=== PATIENT | female | born 1980 | race Caucasian/White ===

== ENCOUNTER → 2020-01-25 14:16 | Outpatient (CLI) | payer OTHER, SELFPAY ==
--- NOTE | ~2020-01-25 | US_ITS ---
EXAMINATION: US pelvic complete w TV DATE: 01/25/2020 14:45 INDICATION: Abnormal uterine bleeding. Comparison:No prior studies for comparison. TECHNIQUE: Multiple transabdominal and endovaginal sonographic images of the pelvis performed. FINDINGS: The uterus measures 10.5 x 7.2 x 7.8 cm. There is a large heterogeneous mass at the uterine fundus measuring 7.2 x 6.4 x 7.1 cm, compatible with fibroid. The endometrial complex measures 2 mm. The right ovary measures 2.5 x 2.5 x 2.7 cm and the left ovary measures 2.4 x 2.2 x 2.2 cm. There ar e small follicles in each ovary. There is no free fluid in the pelvis. There are no abnormal masses seen on either side. IMPRESSION: 1. Large uterine fibroid at the fundus measuring 7.2 x 7.1 x 6.4 cm. Reviewed, dictated and finalized at location A.
== END ==
PROVIDERS: Visit Provider Student in an Organized Health Care Education/Training Program
DX: N93.9 Abnormal uterine and vaginal bleeding, unspecified (principal); D25.9 Leiomyoma of uterus, unspecified
CPT/HCPCS: 76830; 76856

== ENCOUNTER 2021-02-20 08:31 | Outpatient (CLI) | payer OTHER, SELFPAY ==
--- NOTE | 2021-02-20 08:30 | ECG_ITS ---
Measurements Intervals [place] Rate: 69 P: 3 GA: 154 QRS: 42 QRSD: 92 T: 21 QT: 411 QTc: 442 Interpretive Statements SINUS RHYTHM DELAYED PRECORDIAL R/S TRANSITION BASELINE ARTIFACT- I, II, III, AVR, AVL, AVF BORDERLINE ECG Electronically Signed On 02-20-2021 9:06:13 CDT by Parvez Ibanez D.O.
[2021-02-20 09:25] LABS: Basophils Absolute Auto 0.1 K/mm3 (0.0-0.1); Basophils Percent Auto 0.9 % (0.2-1.2); Eosinophils Absolute Auto 0.1 K/mm3 (0-0.3); Eosinophils Percent Auto 1.2 % (0-4.4); Hematocrit 42.8 % (37.0-47.0); Hemoglobin 14.2 g/dL (12.0-15.0); Immature Granulocyte Absolute 0.02 K/mm3 (0.00-0.031); Immature Granulocyte Percent A 0.2 % (0-0.5); Lymphocytes Absolute Auto 3.86 K/mm3 (0.9-3.2); Lymphocytes Percent Auto 44.6 % (18.3-44.2); Mean Corpuscular HGB Conc 33.2 g/dl (32-36); Mean Corpuscular Hemoglobin 30.3 pg (26-34); Mean Corpuscular Volume 91.5 fl (80-100); Mean Platelet Volume 9.8 fl (7.4-10.4); Monocytes Absolute Auto 0.7 K/mm3 (0.1-0.6); Monocytes Percent Auto 7.7 % (2.6-8.5); Neutrophils Absolute Auto 3.9 K/mm3 (1.3-6.7); Neutrophils Percent Auto 45.4 % (45.5-73.1); Platelet Count Result 349 k/mm3 (150-375); Red Blood Count 4.68 M/mm3 (4.2-5.4); Red Cell Distribution Width 13.9 % (11.5-14.5); White Blood Count 8.7 K/mm3 (4.5-10.0)
== END 2021-02-20 08:32 | disposition home or self-care (01) ==
LOC: ANHSURGERY 08:36
PROVIDERS: PCP Nurse Practitioner Family; Visit Provider Student in an Organized Health Care Education/Training Program
DX: Z01.818 Encounter for other preprocedural examination (principal); E78.00 Pure hypercholesterolemia, unspecified; I10 Essential (primary) hypertension
CPT/HCPCS: 36415; 85025; 86850; 86900; 86901; 93005

== ENCOUNTER 2021-02-23 10:50 | Inpatient (IN) | payer OTHER, SELFPAY ==
[2021-02-19 10:13] VITALS: BMI 26.5
--- NOTE | 2021-02-22 17:11 | PM.IMHP ---
H&P: HPI History of Present Illness Date/Time: 02/22/21 17:11 Patient is a 40-year-old nulligravid woman with a long history of fibroid uterus, abnormal uterine bleeding, dysmenorrhea, and pelvic pain. Pelvic US from 12/2019 showed uterus measuring 10.5 x 7.2 x 7.8 cm with a fundal fibroid measuring 7.2 x 6.4 x 7.1 cm. Patient reports persistent irregular menses, menorrhagia and dysmenorrhea since then. She also reports worsening lower back pain and increased urinary frequency. She has tried numerous OCPs in the past, including monophasic and triphasic as well as continuous methods. She was offered alternative methods of hormonal regulation, however, all declined. Patient was also offered IUD trial as well as referral for UFE or myomectomy. Patient declined these options as well and desires definitive management with a hysterectomy. Patient is adamant that she does not desire future fertility. In general, patient reports feeling well today without complaints. Chief Complaint: Fibroid uterus Abnormal uterine bleeding Dysmenorrhea Pelvic pain Review of Systems Review of Systems: All systems reviewed & are unremarkable except as noted in HPI and below Constitutional: Constitutional: Reports as per HPI, Reports no additional constitutional complaints, Denies chills, Denies fever(s), Denies headache(s) and Denies night sweats Eyes: Eyes: Reports as per HPI and Reports no additional eye complaints ENT: Reports system reviewed and no additional complaints, except as documented, Reports as per HPI, Reports Normal hearing present and Denies headache(s) Cardiovascular: Cardiovascular: Reports as per HPI, Reports no additional cardiovascular complaints, Denies chest pain and Denies dyspnea Respiratory: Respiratory: Reports as per HPI, Reports no additional respiratory complaints, Denies cough and Denies dyspnea Gastrointestinal: Gastrointestinal: Reports as per HPI, Reports no additional gastrointestinal complaints, Denies abdominal pain, Denies change in bowel habits, Denies change in stool character, Denies nausea and Denies vomiting Genitourinary: Genitourinary: Reports no additional female genitourinary complaints, Reports as per HPI, Reports abnormal menses, Reports abnormal vaginal bleeding, Denies genital lesions, Reports menorrhagia, Denies hot flashes, Denies dyspareunia, Reports dysmenorrhea, Reports pelvic pain, Denies sexual dysfunction, Denies urinary incontinence, Denies vaginal discharge, Denies vaginal dryness and Denies vaginal odor Musculoskeletal: Musculoskeletal: Reports no additional musculoskeletal complaints and Reports as per HPI Integumentary/Breasts: Skin/Breast: Reports system reviewed and no additional complaints, except as docu, Reports as per HPI, Denies breast pain and Denies nipple discharge Neurologic: Reports system reviewed and no additional complaints, except as documented, Reports as per HPI, Reports Normal hearing present and Denies headache(s) Psychiatric: Psychiatric: Reports no additional psychiatric complaints, Reports as per HPI, Denies anxiety and Denies depression Endocrine: Endocrine: Reports no additional endocrine complaints and Reports as per HPI Hematologic/Lymphatic: Hematologic/Lymphatic: Reports no additional hematologic/lymphatic complaints and Reports as per HPI Allergic/Immunologic: Allergic/Immunologic: Reports no additional allergic/immunologic complaints and Reports as per HPI PMFSH Past Medical History Medical History Benign essential HTN Endometriosis High cholesterol Hypertension Migraines Surgical History Surgical History History of colposcopy 2017 [place] teeth removed Family History Family History Father Diabetes mellitus Hypertension Malignant neoplasm of prostate Family history of diabetes mellitus in
[2021-02-23] VITALS (15 sets, daily range): BP systolic 106–123; BP diastolic 63–80; PULSE 72–98; RESP 8–18; TEMP 36.2–37.1; O2SAT 95–100; BMI 27.1
--- NOTE | 2021-02-23 06:43 | WPDANESEPPF ---
Anes - Initial Pre Proc Eval Procedure: Operation Date: 02/23/21 07:30 Proposed Procedures p Total Abdominal Hysterectomy with Bilateral Salpingectomy - Jamsina Root MD Date/Time: 02/23/21 06:43 Surgeon: Jasmina Root MD Pre Op Diagnosis: leiomyoma of uterus Patient Data Age: 40 Gender: F Height: 1.78 m Weight: 86 kg Allergies Allergy/AdvReac Type Severity Reaction Status Date / Time adhesive tape AdvReac Mild Rash Verified 02/23/21 06:36 erythromycin base AdvReac Mild Nausea Verified 02/23/21 06:36 Home Medications Medication Instructions Recorded Confirmed Type cetirizine 10 mg capsule 10 mg PO DAILY 08/03/19 02/19/21 History lisinopril 10 mg tablet 10 mg PO DAILY #90 tablet 08/25/19 02/19/21 Rx fluoxetine 20 mg capsule 20 mg PO DAILY 01/18/21 02/23/21 History levonorgestrel-ethinyl estradiol 1 tablet PO DAILY #84 tablet 01/18/21 02/19/21 Rx 0.1 mg-20 mcg tablet Adults Multivitamin 1 tab-cap PO DAILY 02/19/21 02/23/21 History atorvastatin 20 mg PO DAILY 02/19/21 02/19/21 History calcium carb-vit D2-magnesium 1 cap PO DAILY 02/19/21 02/23/21 History fluticasone propionate [Allergy 2 spray NASAL BID PRN 02/19/21 02/19/21 History Relief (fluticasone)] topiramate 50 mg PO DAILY 02/19/21 02/19/21 History Patient hx anesthesia problems: none Family hx anesthesia problems: none PMFSH Past Medical History Medical History Benign essential HTN Endometriosis High cholesterol Hypertension Migraines Surgical History Surgical History History of colposcopy 2017 [place] teeth removed Family History Family History Father Diabetes mellitus Hypertension Malignant neoplasm of prostate Family history of diabetes mellitus in first degree relative Mother Hypertension Family history of malignant neoplasm of brain Grandparent Family history of malignant neoplasm of breast Family history of malignant neoplasm of breast in first degree relative Sibling Depression Family history of gynecological problem Social History Social History Smoking status: Never smoker Second hand tobacco smoke exposure: No Alcohol intake: current Drinks per week: 3 Alcohol use details: social drinker Substance use: never Substance use type: does not use Living arrangements: with family Dean - Bernice Final PreProcedure Day of Procedure 02/23/21 06:43 Patient weight: overweight Heart: regular rate and rhythm Lungs: clear to auscultation Airway: Mallampati scale class 1 Neurological: alert and oriented Last oral intake: >/= 8 hours ASA classification: II Emergent: no Anesthetic plan: proceed Anesthesia type and monitoring: general ETT and standard monitoring Informed Consent: The patient's anesthetic plan and its attendant risks and benefits were discussed with the patient/family/POA. Questions were solicited and answers provided to the satisfaction of the patient/family/POA.
[2021-02-23] MEDS: LACTATED RINGERS 1,000 ML 30 ML IV CONT ×2 (06:45→09:11)
[2021-02-23] MEDS: KETOROLAC 15 MG/ML VIAL (*BKC) IV PUSH ×2 (06:51→10:07)
[2021-02-23] MEDS: ACETAMINOPHEN 500 MG TABLET 1000 MG PO (06:51)
[2021-02-23] MEDS: SCOPOLAMINE 1.5 MG PATCH TRANSDERM (07:01)
--- NOTE | 2021-02-23 07:16 | WPDHPUPDATE1 ---
History and Physical Update Update Date/Time: 02/23/21 07:16 History and Physical has been reviewed, including an updated exam of the patient. There are NO changes in the patient's condition. Risks, benefits, and alternatives have been discussed and questions answered. Patient agrees to proceed with procedure.
[2021-02-23] MEDS: ceFAZolin 2 GM/D5W 50 ML 2 GM/50 ML BAG IVPB (07:25)
[2021-02-23] MEDS: fentaNYL CITRATE INJ (*CRX) 100 MCG/2 ML VIAL 25 MCG IV PUSH ×8 (09:19→09:45)
--- NOTE | 2021-02-23 09:29 | W.PM.PROC2 ---
Procedure Note - Detailed Date of Procedure 02/23/21 Pre-op Diagnosis Fibroid uterus Abnormal uterine bleeding Dysmenorrhea Post-op Diagnosis same Procedure Performed Total abdominal hysterectomy Bilateral salpingectomy Surgeon Jasmina Root MD [employer] Alejo Helleress Anesthesia general Findings Approx. 10-12w size uterus, normal appearing ovaries and fallopian tubes bilaterally Description of Procedure The patient was taken to the operating room where she self transferred to the operating room table. She was placed in the dorsal supine position. General anesthesia was administered and found to be adequate. The patient was prepped and draped in the usual sterile fashion. A Pfannenstiel skin incision was made with a scalpel and carried through to the underlying layer of fascia with the Bovie. The fascia was incised in the midline and the incision was extended laterally with the use of forceps and Lo scissors. The inferior aspect of the fascial incision was grasped with Rogelio clamps, elevated, and the underlying rectus muscles were dissected off with Lo scissors. Attention was turned to the superior aspect of the fascial incision, which in a similar manner was grasped with Rogelio clamps, elevated, and the underlying rectus muscles also dissected off with Lo scissors. The rectus muscles were gently retracted and the peritoneal cavity was entered bluntly. The peritoneal cavity was gently stretched. The uterus was palpated beneath and was approx. 10-12w size and globular. Two lap pads were placed laterally beneath the rectus muscle bellies and a self-retaining Teo retractor was placed. Two additional lap pads were placed in the abdomen to displace the bowel cephalad and laterally. A bladder blade was attached to the retractor. The uterus was grasped with two towel clamps and and elevated through the incision. On inspection, the uterus was globular, however, smooth with two small subcentimeter fibroids on the posterior surface. The ovaries and fallopian tubes appeared normal bilaterally. A pean clamp was placed near the left uterine cornua for traction and elevation. The left round ligament was identified, grasped with [place] clamp, and suture ligated. The round ligament was transected with Bovie. The anterior leaf of the broad ligament was carefully dissected towards the midline to begin creation of bladder flap. The left fallopian tube was identified and grasped with a Ricky clamp. The LigaSure device was used to transect the mesosalpinx beneath the tube to the level of the cornua. An incision in the posterior leaf of the broad ligament on the left side was created with the Bovie. The LigaSure device was then used to transect the utero-ovarian ligament on the left side. Dissection of the posterior leaf of the broad ligament was performed. The uterine artery was well skeletonized and cauterized with the LigaSure. Attention was then turned to the patient's right side. A pean clamp was placed near the right uterine cornua for traction and elevation. The right round ligament was identified, grasped with a Ricky clamp, and suture ligated. The round ligament was transected with the Bovie and the anterior leaf of the broad ligament was carefully dissected towards the midline. The opposing ends were joined in the midline and careful dissection was performed to displace the bladder inferiorly. Dissection was primarily performed with the use of bovie and a sponge stick. The bladder was depressed inferiorly well below the level of the anterior cervix. The right fallopian tube was identified and grasped with [place] clamp. The LigaSure device was used to transect the mesosalpinx beneath the tube to the level of the cornua. The LigaSure device was then used to transect the utero-ovarian ligament on the right side. Dissection of the posterior leaf of the broad ligament was performed and the uterine artery was skeletonized and well visualized. The LigaSure devic
[2021-02-23] MEDS: HYDROmorphone HCL INJ (*CRX) 1 MG/ML SYR 0.5 MG IV PUSH ×4 (09:49→10:22)
--- NOTE | 2021-02-23 09:57 | SUR.PHASEI ---
DR. STRICKLAND CALLED TO ENTER ADMISSION ORDERS.
--- NOTE | 2021-02-23 10:37 | SUR.PHASEI ---
DR. STRICKLAND NOTIFIED RE: PATIENT'S PERSISTENT PAIN; DR. STRICKLAND WILL ORDER SPORTS ANALYST PUMP FOR PATIENT ON THE FLOOR. PHARMACY CALLED TO PLACE ORDER RENA.
[2021-02-23] MEDS: DEXTROSE 5%/0.45% SOD CHL 1,000 ML 125 ML IV CONT ×2 (12:03→20:29)
[2021-02-23] MEDS: HYDROmorphon 0.2MG/ML PCA(*CRX 6 MG/30 ML PCA.VIAL IV CONT (12:03)
[2021-02-23] MEDS: IBUPROFEN IV 400 MG in SODIUM CHLORIDE 0.9% IV 100 ML 200 MG IVPB ×2 (16:19→22:13)
[2021-02-24 01:00] VITALS: BP 113/71; PULSE 75; RESP 16; TEMP 36.3; O2SAT 99
[2021-02-24] MEDS: SIMETHICONE 80 MG TAB.CHEW (01:22)
[2021-02-24 03:00] VITALS: RESP 18; O2SAT 98
[2021-02-24 04:45] VITALS: BP 108/65; PULSE 76; RESP 16; TEMP 36.7; O2SAT 99
[2021-02-24] MEDS: IBUPROFEN IV 400 MG in SODIUM CHLORIDE 0.9% IV 100 ML 200 MG IVPB (04:45)
--- NOTE | 2021-02-24 06:45 | PC.NURSE ---
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
[2021-02-24 07:00] VITALS: BP 107/57; PULSE 70; RESP 18; TEMP 37.2
[2021-02-24] MEDS: HYDROcodone/acetaminophen (*CRX) 10-325 MG TABLET 1 TAB PO ×2 (07:01→13:11)
[2021-02-24] MEDS: IBUPROFEN 600 MG TABLET PO ×3 (07:01→19:24)
[2021-02-24] MEDS: SIMETHICONE 80 MG TAB.CHEW PO (07:02)
--- NOTE | 2021-02-24 09:03 | WPDANESPN ---
Anes - Prog Note Post-Op Date/Time: 02/24/21 09:03 Cardiovascular status: normal Respiratory status: normal Airway patency: baseline Mental status: baseline Post-Op hydration status: normal Vital Signs: Last Vital Signs Temp 37.2 C 02/24/21 07:00 Pulse 70 02/24/21 07:00 Resp 18 02/24/21 07:00 BP 107/57 L 02/24/21 07:00 Pulse Ox 99 02/24/21 04:45 Pain Score (VAS): 3 I/O: Intake & Output 02/23/21 02/24/21 02/24/21 23:59 07:59 15:59 Intake Total 3227 906 Output Total 925 2000 Balance 2302 -1094 Post-procedural complaints: none Patient Feedback: Patient satisfied with anesthetic care.
--- NOTE | 2021-02-24 09:04 | PM.GYNPNOP ---
WOOD BARKER - A/P Assessment and plan (1) S/P hysterectomy: Code(s): Z90.710 - Acquired absence of both cervix and uterus Status: Acute Assessment and Plan: POD#1 doing well continue routine postoperative care encourage ambulation and use of IS Postoperative Procedures: Procedures Operation Date: 02/23/21 07:30 Actual Procedure Side Surgeon p Total Abdominal Hysterectomy with Bilateral Salpingectomy Not Applicable Jasmina Root MD Time Spent With Patient Time: Total time spent is greater than 50% in coordination of care (as documented) at patient's floor/unit and/or counseling patient: Time with patient: less than 15 minutes WOOD BARKER- PN:Subj Post-Op Subjective Date/time seen: 02/24/21 09:04 Patient seen at bedside this morning. Pain well controlled medication. States that she currently only experiences some discomfort with movement. Denies any headache, chest pain, shortness of breath, nausea, or vomiting. Tolerating regular diet. Enciso catheter removed this morning. Has not yet voided. Passing flatus. Limited ambulation. Denies any vaginal bleeding. Exam Const: General: cooperative, healthy appearing, comfortable and no acute distress GI: Inspection: non-distended GI Palp: Yes Soft to palpation and No Tenderness to palpation present (GI) Other: incision c/d/i Extrem: Right lower extremity: no edema Left lower extremity: no edema Other: no calf tenderness WOOD BARKER - PN: Obj Data Vital Signs Vital Signs: Vital Signs - 24 hr 02/23/21 09:11 02/23/21 09:24 02/23/21 09:25 Temperature 36.9 C Pulse Rate 86 74 77 Respiratory Rate 11 L 8 L 8 L Blood Pressure 113/63 119/73 122/66 Pulse Oximetry 96 100 100 02/23/21 09:40 02/23/21 09:55 02/23/21 10:10 Temperature Pulse Rate 74 77 72 Respiratory Rate 10 L 13 10 L Blood Pressure 121/73 120/67 123/72 Pulse Oximetry 100 100 100 02/23/21 10:25 02/23/21 10:45 02/23/21 12:03 Temperature 36.6 C Pulse Rate 80 82 Respiratory Rate 12 10 L 16 Blood Pressure 117/68 122/76 Pulse Oximetry 96 96 02/23/21 12:15 02/23/21 16:00 02/23/21 19:10 Temperature 36.9 C 37.1 C 36.9 C Pulse Rate 89 98 92 Respiratory Rate 16 18 18 Blood Pressure 110/66 106/63 120/73 Pulse Oximetry 95 95 97 02/23/21 21:00 02/23/21 23:00 02/24/21 01:00 Temperature 36.3 C L Pulse Rate 75 Respiratory Rate 18 16 16 Blood Pressure 113/71 Pulse Oximetry 98 98 99 02/24/21 03:00 02/24/21 04:45 02/24/21 07:00 Temperature 36.7 C 37.2 C Pulse Rate 76 70 Respiratory Rate 18 16 18 Blood Pressure 108/65 107/57 L Pulse Oximetry 98 99 Intake/Output Intake/Output: Intake & Output 02/21/21 02/22/21 02/23/21 02/24/21 23:59 23:59 23:59 23:59 Intake Total 5677 906 Output Total 1135 1999 Balance 2028 -8203 Meds/Results Medications: Active Medications Generic Name Dose Route Start Last Admin Trade Name Freq PRN Reason Stop Dose Admin Hydrocodone Bitart/Acetaminophen 1 tab 02/24/21 06:31 Hydrocodone/Acetaminophen (*Crx) 5-325 Mg Tablet PO Q3H PRN Pain Rated 4-6 Hydrocodone Bitart/Acetaminophen 1 tab 02/24/21 06:32 02/24/21 07:01 Hydrocodone/Acetaminophen (*Crx) 10-325 Mg Tablet PO 1 tab Q3H PRN Administration Pain Rated 7-10 Dextrose/Sodium Chloride 1,000 mls @ 125 mls/hr 02/23/21 10:51 02/23/21 20:29 Dextrose 5% Sodium Chloride 0.45% IV CONT 125 mls/hr .Q8H ASUNCION Administration Ibuprofen 600 mg 02/24/21 06:30 02/24/21 07:01 Ibuprofen 600 Mg Tablet PO 600 mg Q6H PRN Administration Pain Rated 1-3 Ondansetron HCl 4 mg 02/23/21 10:51 Ondansetron Inj 4 Mg/2 Ml Vial IV PUSH Q6H PRN Nausea Simethicone 80 mg 02/24/21 06:35 02/24/21 07:02 Simethicone 80 Mg Tab.Chew PO 80 mg Q2HR PRN Administration Gas Discomfort
[2021-02-24 17:00] VITALS: BP 117/72; PULSE 76; RESP 16; TEMP 36.7
[2021-02-24 19:20] VITALS: BP 108/59; PULSE 88; RESP 16; TEMP 37; O2SAT 96
[2021-02-25] MEDS: IBUPROFEN 600 MG TABLET PO ×2 (00:56→07:41)
[2021-02-25] MEDS: HYDROcodone/acetaminophen (*CRX) 10-325 MG TABLET 1 TAB PO (00:57)
[2021-02-25 07:30] VITALS: BP 109/69; PULSE 72; RESP 16; TEMP 36.7; O2SAT 100
[2021-02-25] MEDS: HYDROcodone/acetaminophen (*CRX) 5-325 MG TABLET 1 TAB PO ×2 (07:41→10:13)
--- NOTE | 2021-02-25 08:28 | PM.GYNPNOP ---
MEDICAID ANALYST - A/P Assessment and plan (1) S/P hysterectomy: Code(s): Z90.710 - Acquired absence of both cervix and uterus Status: Acute Assessment and Plan: POD#2 doing well continue routine postoperative care encourage ambulation and use of IS Imodium for diarrhea plan is for dc home this afternoon emergency precautions reviewed f/u in office in 2 weeks Postoperative Procedures: Procedures Operation Date: 02/23/21 07:30 Actual Procedure Side Surgeon p Total Abdominal Hysterectomy with Bilateral Salpingectomy Not Applicable Jasmina Root MD Time Spent With Patient Time: Total time spent is greater than 50% in coordination of care (as documented) at patient's floor/unit and/or counseling patient: Time with patient: less than 15 minutes MEDICAID ANALYST- PN:Subj Post-Op Subjective Date/time seen: 02/25/21 08:28 Patient doing well this morning. Pain well controlled medication. Mild headache, however, likely environmental. Patient denies chest pain, shortness of breath, nausea, or vomiting. Tolerating regular p.o. diet. Patient is ambulating well. Voiding without difficulty. Passing flatus. Patient does report an episode of diarrhea this morning. Denies any vaginal bleeding. Exam Const: General: cooperative, healthy appearing, comfortable and no acute distress GI: Inspection: non-distended GI Palp: Yes Soft to palpation and No Tenderness to palpation present (GI) Other: inc c/d/i Extrem: Right lower extremity: no edema Left lower extremity: no edema Other: no calf tenderness MEDICAID ANALYST - PN: Obj Data Vital Signs Vital Signs: Vital Signs - 24 hr 02/24/21 17:00 02/24/21 19:20 Temperature 36.7 C 37.0 C Pulse Rate 76 88 Respiratory Rate 16 16 Blood Pressure 117/72 108/59 L Pulse Oximetry 96 Intake/Output Intake/Output: Intake & Output 02/22/21 02/23/21 02/24/21 02/25/21 23:59 23:59 23:59 23:59 Intake Total 5659 906 Output Total 9703 4750 Balance [id number] Meds/Results Medications: Active Medications Generic Name Dose Route Start Last Admin Trade Name Freq PRN Reason Stop Dose Admin Hydrocodone Bitart/Acetaminophen 1 tab 02/24/21 06:31 02/25/21 07:41 Hydrocodone/Acetaminophen (*Crx) 5-325 Mg Tablet PO 1 tab Q3H PRN Administration Pain Rated 4-6 Hydrocodone Bitart/Acetaminophen 1 tab 02/24/21 06:32 02/25/21 00:57 Hydrocodone/Acetaminophen (*Crx) 10-325 Mg Tablet PO 1 tab Q3H PRN Administration Pain Rated 7-10 Ibuprofen 600 mg 02/24/21 06:30 02/25/21 07:41 Ibuprofen 600 Mg Tablet PO 600 mg Q6H PRN Administration Pain Rated 1-3 Ondansetron HCl 4 mg 02/23/21 10:51 Ondansetron Inj 4 Mg/2 Ml Vial IV PUSH Q6H PRN Nausea Simethicone 80 mg 02/24/21 06:35 02/24/21 07:02 Simethicone 80 Mg Tab.Chew PO 80 mg Q2HR PRN Administration Gas Discomfort
--- NOTE | 2021-02-25 08:32 | P.DS_ITS ---
DS: Admitting Diagnosis Admitting Diagnosis Fibroid uterus DS: Summary Hospital Course Hospital Course: Uncomplicated Time Spent with Patient Time attestation: Total time spent providing and/or coordinating discharge services: DS: Data Data Completed and Pending Pending studies at discharge: Pending at discharge 02/23/21 08:31 Surgical [PTH] Routine Discharge Plan Discharge Attending physician on discharge: Jasmina Root Discharging Clinician: Jasmina Root Anticipated Discharge Date/Time: 02/25/21 13:00 Patient Disposition: Home, Self-Care Activity: as tolerated and pelvic rest Diet: regular Discharge Instructions: Remove the Scopolamine patch that was placed behind your ear in 72 hours or less. Wash your hands after touching. Call office ([phone]) to schedule the following appointments: 1. Postoperative/wound check in 2 weeks. 2. Postoperative visit in 4-6 weeks. You may take Ibuprofen 600mg every 6 hours as needed for pain. I have sent a prescription for a stronger pain medication, Purmela, to your pharmacy. You may take this as prescribed for breakthrough pain (pain that is not controlled with Ibuprofen). No driving for at least two weeks. You also may not drive while taking narcotics. Pain medication may make you constipated. It may be helpful to take an [id number] stool softener, such as Colace and/or Senokot, along with the pain medication to help lessen constipation. Call office or go to ED for pain not controlled with medication, headache, chest pain, shortness of breath, fever, chills, persistent nausea or vomiting, severe abdominal pain, heavy vaginal bleeding or leakage of fluid, foul vaginal discharge or odor, any redness near incision, severe pain, or pus or drainage from incision site. Stand Alone Forms: General Discharge Instructions Follow-up/Referrals: Jasmina Root MD [Physician] - Discharge Medications: New hydrocodone-acetaminophen 5-325 mg Tablet 1 - 2 tablet PO Q4-6H PRN (Reason: Pain Rated 4-6) Qty: 30 RF: 0 Continued fluoxetine [Prozac] 20 mg capsule 20 mg PO DAILY RF: 0 Zyrtec 10 mg capsule 10 mg PO DAILY RF: 0 Adults Multivitamin 1 tab-cap PO DAILY RF: 0 atorvastatin 20 mg tablet 20 mg PO DAILY RF: 0 calcium carb-vit D2-magnesium Capsule 1 cap PO DAILY RF: 0 topiramate 50 mg tablet 50 mg PO DAILY RF: 0 fluticasone propionate [Allergy Relief (fluticasone)] 50 mcg/actuation spray,suspension 2 spray NASAL BID PRN (Reason: Congestion) RF: 0 lisinopril 10 mg tablet 10 mg PO DAILY Qty: 90 RF: 3 Discontinued levonorgestrel-ethinyl estrad [Lutera (28)] 0.1-20 mg-mcg tablet 1 tablet PO DAILY Qty: 84 RF: 0 Date of admission: 02/23/21 10:50 Primary Care Provider: Angeles,Akua Admitting Provider: Jasmina Root Attending physician on admission: Jasmina Root Condition: Stable
== END 2021-02-25 12:57 | disposition home or self-care (01) | DRG 743 ==
LOC: ANHOB2 10:53
PROVIDERS: Admitting Provider Student in an Organized Health Care Education/Training Program; PCP Nurse Practitioner Family; Visit Provider Student in an Organized Health Care Education/Training Program
PROC: 0UT94ZZ Resection of Uterus, Percutaneous Endoscopic Approach (ICD-10-PCS; principal; 2021-02-23 07:30)
DX: D25.9 Leiomyoma of uterus, unspecified (principal); N93.9 Abnormal uterine and vaginal bleeding, unspecified; N94.6 Dysmenorrhea, unspecified; I10 Essential (primary) hypertension; E78.00 Pure hypercholesterolemia, unspecified
CPT/HCPCS: 36415; 85025; 86850; 86900; 86901; 88307; 93005; A9270; J0131; J0690; J1100; J1170; J1741; J1885; J2250; J2405; J2704; J2710; J3010; J7120

== ENCOUNTER → 2022-05-15 10:31 | Outpatient (CLI) | payer OTHER, SELFPAY ==
--- NOTE | ~2022-05-15 | MM_ITS ---
EXAMINATION: MM screening fred BI w mary HISTORY: Screening TECHNIQUE: Craniocaudal and mediolateral oblique 3-D tomosynthesis images were obtained and synthetic 2-D images were generated. CAD analysis was submitted and interpreted. COMPARISON: No prior mammogram is available for comparison at this institution. BREAST PARENCHYMAL COMPOSITION: The breasts are heterogeneously dense, which may obscure small masses FINDINGS: There are low-density masses in the upper outer quadrant of the right breast. There is a fo amador right breast asymmetry inferiorly on MLO view. No mammographic evidence for malignancy in the lef t breast. IMPRESSION: 1. Right breast contains low-density masses in the upper outer quadrant and asymmetry inferiorly on M LO view. 2. Additional mammographic views and possible breast ultrasound are recommended. BI-RADS Category 0: Incomplete: Needs additional imaging evaluation. Reviewed, dictated and finalized at location A. IMPRESSION: 1. Right breast contains low-density masses in the upper outer quadrant and asy mmetry inferiorly on MLO view. 2. Additional mammographic views and possible breast ultrasound are recommended . BI-RADS Category 0: Incomplete: Needs additional imaging evaluation.
== END ==
PROVIDERS: PCP Student in an Organized Health Care Education/Training Program; Visit Provider Nurse Practitioner Family
DX: Z12.31 Encounter for screening mammogram for malignant neoplasm of breast (principal); R92.8 Other abnormal and inconclusive findings on diagnostic imaging of breast
CPT/HCPCS: 77063; 77067

== ENCOUNTER → 2022-06-03 08:43 | Outpatient (CLI) | payer OTHER, SELFPAY ==
--- NOTE | ~2022-06-03 | MMUS_ITS ---
EXAMINATION: MM diagnostic fred RT w mary, US breast RT complete HISTORY: Low-density mammographic masses in upper outer quadrant and inferior asymmetry of right cher st on screening MLO view of 05/15/2022 TECHNIQUE: Additional 3-D tomosynthesis images of the right breast were performed and synthetic 2-D i mages were generated. CAD analysis was submitted and interpreted. High resolution complete right cher st ultrasound including all 4 quadrants was performed. COMPARISON: 05/15/2022 bilateral screening mammogram FINDINGS: MAMMOGRAPHIC FINDINGS: Approximately 5.8 mm at 11 mm circumscribed low-density opacities with halo sign are noted posteriorl y in the upper outer right breast, most likely benign cysts. Additional smaller circumscribed low-den sity opacities are noted. No suspicious mass or architectural distortion of the right breast is detected. ULTRASOUND: No suspicious mass or shadowing of the right breast is detected. 6:00 1 cm from nipple: 3.2 mm sonolucency without internal vascularity or posterior shadowing, consis tent with small cyst 8:00 4 cm from nipple: 2.7 mm sonolucency with through transmission, no internal vascularity, consist ent with small cyst 10:00 7 cm from nipple: Parallel circumscribed sonolucency measuring 4.6 x 10.5 mm, with through arellano smission and no internal vascularity, consistent with cyst 10:00 7 cm from nipple: Parallel circumscribed 3.3 x 4.8 x 7.6 mm sonolucency with through transmissi on and no internal vascularity, consistent with cyst IMPRESSION: 1. Benign findings 2. Routine annual mammographic screening is recommended BI-RADS Category 2: Benign finding(s). Reviewed, dictated and finalized at location A. ESSIONAL ENGINEER IMPRESSION: 1. Benign findings 2. Routine annual mammographic screening is recommended BI-RADS Category 2: Benign finding(s).
== END ==
PROVIDERS: Visit Provider Student in an Organized Health Care Education/Training Program
DX: R92.8 Other abnormal and inconclusive findings on diagnostic imaging of breast (principal)
CPT/HCPCS: 76641; 77061; 77065; G0279

== ENCOUNTER → 2022-06-12 11:45 | Outpatient (CLI) | payer OTHER, SELFPAY ==
--- NOTE | ~2022-06-12 | XR_ITS ---
XR lumbar spine 2-3V DATE: 06/12/2022 12:06 INDICATION: Fall 6 months ago. Low back pain, tailbone pain TECHNIQUE: AP, lateral, coned lateral lumbosacral views COMPARISON: None FINDINGS: No fracture or bone destruction or spondylolisthesis. The lumbar pedicles are intact. The s acroiliac joints are intact. Moderate loss of interspace height at L5-S1. Lumbar interspaces appear relatively preserved. IMPRESSION: Moderate loss of interspace height at L5-S1 Reviewed, dictated and finalized at location A. NIGHT
--- NOTE | ~2022-06-12 | XR_ITS ---
XR sacrum coccyx min 2V DATE: 06/12/2022 12:06 INDICATION: Fall 6 months ago. Low back pain and tailbone pain TECHNIQUE: AP, angled AP and lateral views of sacrum and coccyx COMPARISON: None FINDINGS: Degenerative disc disease at L5-S1. Normal alignment at the pubic symphysis and sacroiliac joints. No sacral fracture or bone destruction . No coccygeal fracture is evident. IMPRESSION: No sacral or coccygeal fracture is detected Degenerative disc disease at L5-S1 Reviewed, dictated and finalized at location A. E PRODUCT DEMONSTRATOR
== END ==
PROVIDERS: PCP Physician Assistant Medical; Visit Provider Physician Assistant Medical
DX: M54.50 Low back pain, unspecified (principal); M51.37 Other intervertebral disc degeneration, lumbosacral region; R29.890 Loss of height
CPT/HCPCS: 72100; 72220

== ENCOUNTER 2023-02-25 13:26 | Outpatient (CLI) | payer OTHER, SELFPAY ==
[2023-02-25 14:22] LABS: Influenza A QL RT-PCR Negative (Negative); Influenza B QL RT-PCR Negative (Negative); RSV RNA, RT-PCR Negative (Negative); SARS-CoV-2 RNA PCR Negative (Negative)
== END 2023-02-25 13:27 | disposition home or self-care (01) ==
PROVIDERS: PCP Family Medicine; Visit Provider Family Medicine
DX: U07.1 COVID-19 (principal)
CPT/HCPCS: 87637

== ENCOUNTER 2023-06-16 14:24 | Outpatient (CLI) | payer OTHER, SELFPAY ==
--- NOTE | ~2023-06-16 | MM_ITS ---
EXAMINATION: MM screening fred BI w mary HISTORY: Screening mammogram TECHNIQUE: Craniocaudal and mediolateral oblique 3-D tomosynthesis images were obtained and synthetic 2-D images were generated. CAD analysis was submitted and interpreted. COMPARISON: 06/03/2022 diagnostic right mammogram and complete right breast ultrasound 05/15/2022 bilateral screening mammogram BREAST PARENCHYMAL COMPOSITION: The breasts are heterogeneously dense, which may obscure small masses . FINDINGS: Several approximately 8 mm-11.5 mm opacities are noted in the posterior upper outer right b reast, with circumscribed margins, likely benign cysts. Diagnostic right mammogram and right breast u ltrasound examination are recommended. Otherwise no suspicious mass, architectural distortion, malignant calcification, skin thickening or r etraction of either breast or significant new or developing density is noted otherwise. IMPRESSION: 1. Posterior upper outer quadrant right breast masses 2. Diagnostic right mammogram and right breast ultrasound examination are recommended. BI-RADS Category 0: Incomplete: Needs additional imaging evaluation. Reviewed, dictated and finalized at location A. S REPRESENTATIVE GAS SERVICE IMPRESSION: 1. Posterior upper outer quadrant right breast masses 2. Diagnostic right mammogram and right breast ultrasound examination are recom mended. BI-RADS Category 0: Incomplete: Needs additional imaging evaluation.
== END 2023-06-16 14:25 | disposition home or self-care (01) ==
LOC: CHSIMG 14:28
PROVIDERS: PCP Family Medicine; Visit Provider Registered Nurse
DX: Z12.31 Encounter for screening mammogram for malignant neoplasm of breast (principal); R92.8 Other abnormal and inconclusive findings on diagnostic imaging of breast
CPT/HCPCS: 77063; 77067

== ENCOUNTER 2023-06-26 10:01 | Outpatient (CLI) | payer OTHER, SELFPAY ==
--- NOTE | ~2023-06-26 | US_ITS ---
EXAMINATION: US breast RT complete HISTORY: Posterior upper outer quadrant right breast masses reported on 06/16/2023 screening mammogra m TECHNIQUE: Additional 3-D tomosynthesis images of right breast were performed and synthetic 2-D image s were generated. CAD analysis was submitted and interpreted. High resolution complete right breast u ltrasound examination including all 4 quadrants and subareolar area was performed. COMPARISON: 06/16/2023 bilateral screening mammogram FINDINGS: MAMMOGRAPHIC FINDINGS:. There are multiple circumscribed opacities in the posterior upper outer right breast measuring up to approximately 12 mm, some with halo sign, suggesting multiple benign cysts. No suspicious mass or architectural distortion, malignant calcification, skin thickening or retractio n is detected. ULTRASOUND: 3:00 4 cm from nipple: Approximately 3.7 x 4.5 x 5.9 mm cyst 9:00 7 cm from nipple: Parallel circumscribed 3.2 x 4.2 x 1.5 mm sonolucency consistent with cyst 10:00 7 cm from nipple: There are 2 simple cysts through transmission posterior enhancement, measurin g 13 x 16.4 x 9.2 mm and 9.8 x 8.9 x 4.7 mm. No suspicious mass or shadowing of the right breast is detected. IMPRESSION: 1. Multiple benign cysts; no mammographic or sonographic evidence of malignancy 2. Routine annual mammographic screening is recommended. BI-RADS Category 2: Benign finding(s). Reviewed, dictated and finalized at location A. NE ELECTRONICS REPAIRER
--- NOTE | ~2023-06-26 | MM_ITS ---
MM diagnostic fred RT w mary DATE: 06/26/2023 10:22 Please refer to the combined 06/26/2023 right diagnostic mammogram and right complete breast ultrasou nd report. IMPRESSION: Multiple right benign simple breast cysts BI-RADS Category 2: Benign Reviewed, dictated and finalized at Location A. Reviewed, dictated and finalized at location A. ING AND JOINING SUPERVISOR
== END 2023-06-26 10:02 | disposition home or self-care (01) ==
LOC: CHSIMG 10:03
PROVIDERS: PCP Family Medicine; Visit Provider Registered Nurse
DX: R92.8 Other abnormal and inconclusive findings on diagnostic imaging of breast (principal)
CPT/HCPCS: 76641; 77061; 77065; G0279

== ENCOUNTER 2023-08-25 16:35 | Outpatient (CLI) | payer OTHER, SELFPAY ==
[2023-08-25 17:28] LABS: Influenza A QL RT-PCR Positive (Negative); Influenza B QL RT-PCR Negative (Negative); RSV RNA, RT-PCR Negative (Negative); SARS-CoV-2 RNA PCR Negative (Negative)
== END 2023-08-25 16:36 | disposition home or self-care (01) ==
LOC: ANHLAB 16:36
PROVIDERS: PCP Family Medicine; Visit Provider Physician Assistant Medical
DX: Z20.822 Contact with and (suspected) exposure to COVID-19 (principal)
CPT/HCPCS: 87637

== ENCOUNTER 2024-08-12 14:30 | Outpatient (CLI) | payer OTHER, SELFPAY ==
--- NOTE | ~2024-08-12 | MM_ITS ---
EXAMINATION: MM screening fred BI w mary HISTORY: Screening TECHNIQUE: Craniocaudal and mediolateral oblique 3-D tomosynthesis images were obtained and synthetic 2-D images were generated. CAD analysis was submitted and interpreted. COMPARISON: Comparison to multiple prior studies sequentially, with oldest reviewed study dated 04/27. BREAST PARENCHYMAL COMPOSITION: Dense: The breasts are heterogeneously dense, which may obscure small masses FINDINGS: There is no evidence of suspicious mass, calcification, or architectural distortion to sugg est malignancy in either breast. There has been no suspicious interval change. IMPRESSION: 1. No mammographic evidence of malignancy. 2. Recommend routine screening mammography in one year. BI-RADS Category 1: Negative Reviewed, dictated and finalized at location A. UCTION MACHINE COMPUTER OPERATOR
== END 2024-08-12 14:31 | disposition home or self-care (01) ==
PROVIDERS: PCP Family Medicine; Visit Provider Nurse Practitioner Family
DX: Z12.31 Encounter for screening mammogram for malignant neoplasm of breast (principal)
CPT/HCPCS: 77063; 77067